=== PATIENT | female | born 1995 | race African-American/Black ===

== ENCOUNTER 2017-08-31 21:37 | Emergency (ER) | payer OTHER ==
[2017-08-31] MEDS: TETRACAINE 0.5% OPHTH SOLUTION 4ML BOTTLE. OS (21:57)
[2017-08-31] MEDS: FLUORESCEIN OPHTH TEST STRIP. OS (21:58)
[2017-08-31] MEDS: IV NORMAL SALINE 1000ML BAG 1,000 ML IV (22:30)
== END 2017-08-31 23:55 | disposition home or self-care (01) ==
LOC: ER 23:55
DX: T65.891A Toxic effect of other specified substances, accidental (unintentional), initial encounter (principal); T26.92XA Corrosion of left eye and adnexa, part unspecified, initial encounter; G43.909 Migraine, unspecified, not intractable, without status migrainosus; Y93.89 Activity, other specified; Y99.8 Other external cause status; Y92.89 Other specified places as the place of occurrence of the external cause
CPT/HCPCS: 99283

== ENCOUNTER 2017-11-26 00:37 | Emergency (ER) | payer OTHER ==
[2017-11-26] MEDS: AMOXICILLIN 250 MG CAPSULE. PO (01:05)
== END 2017-11-26 01:07 | disposition home or self-care (01) ==
LOC: ER 00:37
DX: O26.891 Other specified pregnancy related conditions, first trimester (principal); K02.9 Dental caries, unspecified; K08.89 Other specified disorders of teeth and supporting structures; G43.909 Migraine, unspecified, not intractable, without status migrainosus; Z3A.08 8 weeks gestation of pregnancy
CPT/HCPCS: 99283